=== PATIENT | male | born 1940 | race Caucasian/White ===

== ENCOUNTER 2024-01-31 00:33 | Inpatient (IN) | payer MEDICARE ==
[2024-01-31] VITALS (10 sets, daily range): BP systolic 95–134; BP diastolic 51–75; PULSE 64–130; RESP 18; TEMP 96.9–103.2; O2SAT 98–100
[~2024-01-31] VITALS: Ht 167.6 cm; Wt 77.7 kg
[2024-01-31] MEDS ORDERED: cefTRIAXone 1,000 MG VIAL ONE (00:57)
[2024-01-31 01:10] LABS: HEMATOCRIT 44.8 % (36-52); HEMOGLOBIN 14.9 g/dL (12.0-18.0); MEAN CORPUSCULAR HEMOGLOBIN 31 pg (27-31); MEAN CORPUSCULAR HGB CONC 33 g/dL (33-37); MEAN CORPUSCULAR VOLUME 94.4 fL (80-94); PLATELET COUNT (AUTO) 281 K/uL (140-450); RED BLOOD CELL COUNT(AUTO) 4.75 MIL/uL (4.20-6.10); RED CELL DISTRIBUTION WIDTH 14.2 % (11.6-13.7); WHITE BLOOD COUNT (AUTO) 23.1 K/uL (4.8-10.8)
[2024-01-31] MEDS: cefTRIAXone 1,000 MG in DEXT 5% MINI-BAG PLUS 50 ML IV ONE (01:13)
[2024-01-31] MEDS: NACL 0.9% 1,000 ML IV SCH ×2 (01:14→03:25)
[2024-01-31 01:15] LABS: ANION GAP 15.3 (8-16); CALCIUM 9.6 mg/dL (8.5-10.1); CARBON DIOXIDE 22.6 mmol/L (21-32); CHLORIDE 101 mmol/L (98-107); CREATININE 1.7 mg/dL (0.6-1.3); GLUCOSE 211 mg/dL (74-106); POTASSIUM 3.9 mmol/L (3.5-5.1); SODIUM SERUM 135 mmol/L (136-145); UREA NITROGEN, BLOOD 27 mg/dL (7-18)
[2024-01-31 01:18] LABS: BILIRUBIN,URINE NEGATIVE (NEGATIVE); BLOOD, URINE 1+ (NEGATIVE); COLOR,URINE YELLOW (YELLOW); LEUKOCYTE ESTERASE ,URINE 1+ (NEGATIVE); NITRITE, URINE NEGATIVE (NEGATIVE); PH,URINE >=9.0 (5.0-9.0); PROTEIN,URINE 3+ (NEGATIVE); UGLUCOSE NEGATIVE (NEGATIVE); UROBILINOGEN,URINE 0.2 EU/dL (0.2 - 1)
[2024-01-31 01:22] LABS: APPEARANCE,URINE CLOUDY (CLEAR)
[2024-01-31 01:25] LABS: BACTERIA,URINE 2+ /HPF (None Seen); MUCUS,URINE 2+ /LPF (None Seen); RBC,URINE 0-5 /HPF (0-5); SQUAMOUS EPITHELIAL CELL,UR FEW /LPF (0-3 (FEW))
[2024-01-31 01:26] LABS: URIC ACID CRYSTALS,URINE 0-10 /HPF (None Seen)
[2024-01-31 01:36] LABS: LACTIC ACID 3.3 mmol/L (0.4-2.0)
[2024-01-31 01:51] LABS: ANISOCYTOSIS 1+; LYMPHOCYTES % (MANUAL) 4 % (20-46); MONOCYTES % (MANUAL) 7 % (5-12); PLATELET ESTIMATE ADEQUATE
[2024-01-31] MEDS: NACL 0.9% 1,000 ML IV ONE (01:52)
[2024-01-31 01:55] LABS: FLU A ANTIGEN NEGATIVE (NEGATIVE)
[2024-01-31 01:56] LABS: FLU B ANTIGEN NEGATIVE (NEGATIVE)
[2024-01-31] MEDS ORDERED: CARB1TAB37 PO (02:06)
[2024-01-31] MEDS ORDERED: HYDROcodone/APAP 5/325 MG 1 TAB TAB PO PRN (02:20)
[2024-01-31] MEDS ORDERED: ONDANSETRON 4 MG/2 ML VIAL IVP PRN (02:20)
[2024-01-31] MEDS ORDERED: ACETAMINOPHEN 325 MG TAB PO PRN (02:20)
[2024-01-31 02:44] LABS: INR 1.12 (0.8-1.2); PARTIAL THROMBOPLASTIN TIME 24.6 secs (22-35.6); PROTHROMBIN TIME 11.7 secs (10.8-13.4)
[2024-01-31 03:56] LABS: CKMB RELATIVE INDEX 1.9 (0.0-2.5); CREATINE KINASE MB 52.7 ng/mL (0-3.6)
[2024-01-31] MEDS: ENOXAPARIN 40 MG/0.4 ML SYR SUBQ SCH (04:32)
[2024-01-31] MEDS: ENOXAPARIN 40 MG/0.4 ML SYR SUBQ ONE (04:32)
[2024-01-31] MEDS: ASCORBIC ACID 500 MG TAB PO SCH (08:56)
[2024-01-31] MEDS: ZINC SULF 220 MG CAP PO SCH (08:56)
[2024-01-31] MEDS: CHOLECALCIFEROL 1,000 IU TAB PO SCH (08:57)
[2024-01-31] MEDS: METOPROLOL 25 MG TAB PO SCH (10:00)
[2024-01-31] MEDS: ASPIRIN 81 MG TAB.CHEW PO ONE (10:00)
[2024-01-31] MEDS: LOSARTAN 25 MG TAB PO SCH (10:03)
[2024-01-31] MEDS ORDERED: HEPARIN PER PHARMACY MC PRN (10:20)
[2024-01-31] MEDS: hePARIN / DEXT 5% PREMIX 250 ML IV SCH (12:01)
[2024-01-31] MEDS: SIMVASTATIN 20 MG TAB PO SCH (16:56)
[2024-01-31 19:09] LABS: INR 1.75 (0.8-1.2); PROTHROMBIN TIME 17.8 secs (10.8-13.4)
[2024-01-31 19:12] LABS: PARTIAL THROMBOPLASTIN TIME 56.8 secs (22-35.6)
[2024-01-31] MEDS: cefTRIAXone 1,000 MG VIAL ONE (23:54)
[2024-02-01] VITALS: PULSE 76
[2024-02-01 04:00] VITALS: BP 100/56; PULSE 71; PULSE 77; PULSE 79; PULSE 88; RESP 18; TEMP 98; O2SAT 98
[2024-02-01 08:00] VITALS: BP 103/57; PULSE 80; RESP 20; TEMP 97.9; O2SAT 96; O2SAT 98
[2024-02-01 08:28] LABS: BASOPHILS # (AUTO) 0.1 K/uL (0.00-0.22); BASOPHILS % (AUTO) 0.5 % (0.0-2.0); EOSINOPHILS # (AUTO) 0.1 K/uL (0-0.4); EOSINOPHILS % (AUTO) 0.8 % (0.0-4.0); HEMATOCRIT 36.1 % (36-52); HEMOGLOBIN 12.1 g/dL (12.0-18.0); LYMPHOCYTES % (AUTO) 13.6 % (20.5-51.1); MEAN CORPUSCULAR HEMOGLOBIN 31 pg (27-31); MEAN CORPUSCULAR HGB CONC 34 g/dL (33-37); MEAN CORPUSCULAR VOLUME 92.9 fL (80-94); MONOCYTES % (AUTO) 7.1 % (1.7-9.3); NEUTROPHILS # (AUTO) 11.4 K/uL (1.8-7.7); PLATELET COUNT (AUTO) 226 K/uL (140-450); RED BLOOD CELL COUNT(AUTO) 3.89 MIL/uL (4.20-6.10); RED CELL DISTRIBUTION WIDTH 14.3 % (11.6-13.7); WHITE BLOOD COUNT (AUTO) 14.6 K/uL (4.8-10.8)
[2024-02-01 09:31] LABS: ANION GAP 11.1 (8-16); CALCIUM 8.2 mg/dL (8.5-10.1); CARBON DIOXIDE 23.9 mmol/L (21-32); CHLORIDE 107 mmol/L (98-107); GLUCOSE 99 mg/dL (74-106); SODIUM SERUM 138 mmol/L (136-145)
[2024-02-01 09:32] LABS: UREA NITROGEN, BLOOD 17 mg/dL (7-18)
[2024-02-01] MEDS: ASPIRIN 81 MG TAB.CHEW PO SCH (09:33)
[2024-02-01 09:34] LABS: CREATINE KINASE, TOTAL 10227 U/L (39-308)
[2024-02-01] MEDS: NACL 0.9% 1,000 ML IV SCH (11:00)
[2024-02-01 12:00] VITALS: BP 112/66; PULSE 66; RESP 20; TEMP 98.1; O2SAT 99
[2024-02-01] MEDS ORDERED: HYDRAGUARD CREAM TP PRN (12:20)
[2024-02-01] MEDS: HYDRAGUARD CREAM TP SCH (13:32)
[2024-02-01 16:00] VITALS: BP 112/56; PULSE 71; RESP 20; TEMP 98.2; O2SAT 97
[2024-02-01 20:00] VITALS: BP 102/53; PULSE 89; PULSE 98; RESP 19; TEMP 97.5; O2SAT 95
[2024-02-01] MEDS: CARBIDOPA/LEVODOPA 25/100 MG 1 TAB PO SCH (23:47)
[2024-02-02] VITALS (8 sets, daily range): BP systolic 100–130; BP diastolic 50–75; PULSE 65–96; RESP 18–19; TEMP 97.2–98.9; O2SAT 97–99
[2024-02-02 04:24] LABS: BASOPHILS # (AUTO) 0.1 K/uL (0.00-0.22); BASOPHILS % (AUTO) 0.5 % (0.0-2.0); EOSINOPHILS # (AUTO) 0.1 K/uL (0-0.4); HEMATOCRIT 30.9 % (36-52); HEMOGLOBIN 10.6 g/dL (12.0-18.0); LYMPHOCYTES # (AUTO) 1.9 K/uL (2.0-11.5); LYMPHOCYTES % (AUTO) 16.3 % (20.5-51.1); MEAN CORPUSCULAR HEMOGLOBIN 32 pg (27-31); MEAN CORPUSCULAR HGB CONC 34 g/dL (33-37); MEAN CORPUSCULAR VOLUME 92.4 fL (80-94); MONOCYTES # (AUTO) 0.8 K/uL (0.8-1.0); NEUTROPHILS # (AUTO) 8.7 K/uL (1.8-7.7); NEUTROPHILS % (AUTO) 75.2 % (42.2-75.2); PLATELET COUNT (AUTO) 209 K/uL (140-450); RED BLOOD CELL COUNT(AUTO) 3.34 MIL/uL (4.20-6.10); RED CELL DISTRIBUTION WIDTH 13.9 % (11.6-13.7); WHITE BLOOD COUNT (AUTO) 11.5 K/uL (4.8-10.8)
[2024-02-02 04:49] LABS: ALANINE AMINOTRANSFERASE 23 U/L (12-78); ALBUMIN 2.5 g/dL (3.4-5.0); ALKALINE PHOSPHATASE 43 U/L (50-136); ANION GAP 11.3 (8-16); ASPARTATE AMINOTRANSFERASE 274 U/L (15-37); CALCIUM 8.1 mg/dL (8.5-10.1); CARBON DIOXIDE 24.7 mmol/L (21-32); CHLORIDE 106 mmol/L (98-107); CREATINE KINASE, TOTAL 4949 U/L (39-308); CREATININE 0.9 mg/dL (0.6-1.3); GLUCOSE 102 mg/dL (74-106); MAGNESIUM 2.2 mg/dL (1.8-2.4); PHOSPHORUS 2.6 mg/dL (2.5-4.9); SODIUM SERUM 138 mmol/L (136-145); TOTAL BILIRUBIN 0.5 mg/dL (0.0-1.0); TOTAL PROTEIN, SERUM 5.1 g/dL (6.4-8.2); UREA NITROGEN, BLOOD 15 mg/dL (7-18)
[2024-02-02] MEDS ORDERED: Heparin Per Pharmacy MC (11:37)
== END 2024-02-02 23:55 | disposition short-term general hospital (02) | DRG 871 ==
LOC: MED 00:33 → MTU 02:19
PROVIDERS: ADMIT Student in an Organized Health Care Education/Training Program; ATTEND Student in an Organized Health Care Education/Training Program
DX: A41.9 Sepsis, unspecified organism (principal); I21.A1 Myocardial infarction type 2; U07.1 COVID-19; N17.0 Acute kidney failure with tubular necrosis; M62.82 Rhabdomyolysis; N39.0 Urinary tract infection, site not specified; E44.0 Moderate protein-calorie malnutrition; D64.9 Anemia, unspecified; E88.09 Other disorders of plasma-protein metabolism, not elsewhere classified; R74.01 Elevation of levels of liver transaminase levels; K76.0 Fatty (change of) liver, not elsewhere classified; G20.A1 Parkinson's disease without dyskinesia, without mention of fluctuations; Z85.51 Personal history of malignant neoplasm of bladder; Z79.899 Other long term (current) drug therapy; Z88.8 Allergy status to other drugs, medicaments and biological substances; Z68.27 Body mass index [BMI] 27.0-27.9, adult
CPT/HCPCS: 36415; 70450; 71045; 80048; 80053; 81001; 82550; 82553; 83605; 83735; 83880; 84100; 84484; 85025; 85610; 85730; 87040; 87081; 87086; 96361; 96365; 97112; 97116; 97163-GP; 97530; 99285; J0696; J1644; J1650; J7060; Q0092